=== PATIENT | female | born 1975 | race Caucasian/White ===

== ENCOUNTER → 2019-08-14 | Outpatient (CLI) | payer OTHER ==
--- NOTE | 2019-08-15 11:03 | Diagnostic Imaging Report ---
INDICATION: Routine screening. Comparison is made with prior mammogram 05/01/2017 and 01/27/2016. 2-D and 3-D bilateral screening mammography was performed with CAD. Both breasts are heterogeneously dense, limiting the sensitivity of mammography. Innumerable micro-calcification throughout both breasts are again noted, likely benign. A circumscribed density in the medial left breast at mid depth has developed. This is approximately 6 cm from the nipple. This appears to be at the nipple line on MLO view. No discrete mass is seen. Axillae are unremarkable. IMPRESSION: Nodular density medial left breast approximately 9:00 location. Additional views and ultrasound are recommended for further evaluation. BI-RADS 0 ACR BI-RADS Category 0: Incomplete. (Needs additional imaging evaluation). Result letter will be mailed to the patient. Note: At least 10% of breast cancer is not imaged by mammography. Dictated by: Dictated on workstation # [id number]
== END ==
LOC: RAD 15:01
PROVIDERS: ATTEND Family Medicine
DX: Z12.31 Encounter for screening mammogram for malignant neoplasm of breast (principal); R92.8 Other abnormal and inconclusive findings on diagnostic imaging of breast
CPT/HCPCS: 77067

== ENCOUNTER → 2019-09-11 | Outpatient (CLI) | payer OTHER ==
--- NOTE | 2019-09-11 10:21 | Diagnostic Imaging Report ---
INDICATION: Left breast density. Patient presents for additional views. Correlation is made with screening study from 08/14/2019. Unilateral left 2-D and 3-D diagnostic mammography was performed with CAD. This includes spot compression CC, rolled CC as well as a mediolateral view and spot compression MLO view. Additional views show persistence of a circumscribed nodule in the medial aspect of the left breast approximately 6 cm from the nipple. This may be slightly inferiorly located on the MLO view. Further evaluation with ultrasound is recommended. Numerous benign calcifications are noted. IMPRESSION: BI-RADS 0 Circumscribed nodular density medial left breast 6 cm from the nipple. Further evaluation of this area with ultrasound is recommended and will be performed today. ACR BI-RADS Category 0: Incomplete. (Needs additional imaging evaluation). Result letter will be mailed to the patient. Note: At least 10% of breast cancer is not imaged by mammography. Dictated by: Dictated on workstation # [id number]
--- NOTE | 2019-09-11 10:25 | Diagnostic Imaging Report ---
INDICATION: Left breast density noted on recent mammography. The study is performed for further evaluation. Correlation is made with recent screening mammogram from 08/14/2019 as well as diagnostic mammogram performed earlier today. Sonographic interrogation of the medial aspect of the left breast was performed. There is a simple-appearing cyst at the 9:30 location of the left breast 5 cm from the nipple measuring 10 mm x 6 mm x 9 mm. There is a 2nd cyst at the 8:00 location 5 cm from the nipple measuring 5 mm x 4 mm x 5 mm. Additional smaller cysts are present as well. These likely account for the mammographic density. No solid mass is identified. IMPRESSION: BI-RADS Category 2 Simple-appearing cyst in the medial left breast corresponding to mammographic densities. Patient may return to routine annual screening mammography. ACR BI-RADS Category 2: Benign findings. Result letter will be mailed to the patient. Note: At least 10% of breast cancer is not imaged by mammography. Dictated by: Dictated on workstation # [id number]
== END ==
LOC: RAD 09:10
PROVIDERS: ATTEND Nurse Practitioner Family
DX: N60.02 Solitary cyst of left breast (principal)
CPT/HCPCS: 76642